=== PATIENT | female | born 1990 | race Caucasian/White ===

== ENCOUNTER 2020-08-26 10:55 | Emergency (ER) | payer MEDICAID ==
[~2020-08-26] VITALS: Ht 172.7 cm; Wt 95.0 kg
[2020-08-26] MEDS ORDERED: benzonatate 100mg capsule PO ONE (12:55)
[2020-08-26] MEDS ORDERED: pseudoephedrine 30mg tablet PO ONE (12:55)
[2020-08-26] MEDS ORDERED: ipratropium/albuterol 3ml nebule NEB ONE (12:55)
[2020-08-26] MEDS ORDERED: ALBU18HF2 INH (13:44)
[2020-08-26] MEDS ORDERED: BENZ-16 PO (13:44)
[2020-08-26] MEDS ORDERED: INHA1INH2 INH (13:44)
[2020-08-26] MEDS ORDERED: PROM118S PEG (13:44)
[2020-08-26 13:54] VITALS: BP 115/71
== END 2020-08-26 13:56 | disposition home or self-care (01) ==
LOC: ER 10:56
DX: J98.01 Acute bronchospasm (principal); R05 Cough; R06.02 Shortness of breath; R09.81 Nasal congestion; F17.200 Nicotine dependence, unspecified, uncomplicated; Z79.899 Other long term (current) drug therapy
CPT/HCPCS: 71046; 94640; 94760; 99283